=== PATIENT | female | born 1950 | race Caucasian/White ===

== ENCOUNTER → 2023-07-17 11:03 | Outpatient (REF) | payer OTHER, SELFPAY | LOC: WDC 11:03 | PROVIDERS: ATTENDING PHYSICIAN Family Medicine | DX: Z12.31 Encounter for screening mammogram for malignant neoplasm of breast (principal) | CPT/HCPCS: 77063; 77067 ==

== ENCOUNTER 2023-08-05 12:50 | Emergency (ER) | payer OTHER, SELFPAY ==
[2023-08-05 13:13] LABS: % Eosinophils 0.2 % (0-6); % Immature Granulocytes 0.2 % (0-0.5); % Monocytes 2.2 % (1.7-9.3); % Neutrophils 2.4 % (42.2-75.2); Absolute Basophils 0.1 10^3/uL (0-0.2); Absolute Eosinophils 0.4 10^3/uL (0-0.7); Absolute Immature Granulocytes 0.5 10^3/uL (0-0.05); Absolute Lymphocytes 202.6 10^3/uL (1.2-3.4); Absolute Monocytes 4.7 10^3/uL (0.1-0.6); Absolute Neutrophils 5.1 10^3/uL (1.4-6.5); Hematocrit 35.3 % (37.0-47.0); Hemoglobin 11.3 g/dL (12.0-16.0); Mean Corpuscular Hgb 28.9 pg (27.0-31.0); Mean Corpuscular Volume 90.3 fL (81.0-99.0); Mean Platelet Volume 10.5 fL (7.4-10.4); Nucleated Red Blood Cells % 0 %; Platelet Count 153 10^3/uL (130-400); Red Blood Cell Count 3.91 10^6/uL (4.20-5.40); Red Cell Dist. Width 14.9 % (11.5-14.5)
[2023-08-05 13:16] LABS: White Blood Cell Count 213.3 10^3/uL (4.8-10.8)
[2023-08-05 13:27] LABS: COVID-19 Antigen Negative (Negative)
[2023-08-05 13:31] LABS: ALT (SGPT) 19 U/L (0-35); AST (SGOT) 32 U/L (14-36); Albumin 4.3 g/dl (3.5-5.0); Alkaline Phosphatase 107 U/L (38-126); Blood Urea Nitrogen 22 mg/dl (7-17); Calcium 9.3 mg/dl (8.4-10.2); Carbon Dioxide 27 mmol/L (22-30); Chloride 101 mmol/L (98-107); Glucose 109 mg/dl (70-99); Potassium 4.2 mmol/L (3.5-5.1); Sodium 139 mmol/L (135-145); Total Bilirubin 0.6 mg/dl (0.2-1.3); Total Protein 6.6 g/dl (6.3-8.2); eGFR > 60.00
--- NOTE | 2023-08-05 13:34 | ED.GENMED ---
History of Present Illness
General
Chief Complaint: Cold/Flu/URI Symptoms
Source: patient
Exam Limitations: none
Time Seen by Provider: 08/05/23 13:23
Nursing documentation reviewed up to this point in time: agreed with
Travel History
Have you had any contact with someone who has COVID-19?: No
Do you have any symptoms of coronavirus? Fever > 100 degrees, chills, cough, shortness of breath, sore throat, loss of taste or smell, muscle aches, or headache?: No
History of Present Illness
History of Present Illness:
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
her mask, it had heavy thick dust in the air which she inhaled. Past few days has had an increasing SOB, cough with pain in lungs, deeper voice, fatigue.
She feels well otherwise, denies fever, CP.
Has chronic year-round allergic rhinitis and takes daily Loratadine.
Past History
Past History
ED Past Medical History: Cancer (CLL followed by Dr. Martins) and Other (vianney); Negative Valvular disease
ED Past Surgical History: None
Social History
Tobacco: Non-smoker
Alcohol: None
Drug: None
Living: with family
Employment: Employed
Family History
Family History: Other
Review of Systems
Review of Systems
Allergies reviewed?: Yes
All Other Systems: ROS reviewed and negative except as documented in HPI and ROS
Constitutional: Reports fatigue; Denies fever or chills
EENT: Reports sore throat (mild, voice lower than normal, chronic PND)
Respiratory: Reports cough; Denies trouble breathing (lungs hurt with deep breaths, cough)
Cardiac: Denies chest pain
ABD/GI: Denies abdominal pain, nausea or vomiting
Musculoskeletal: Reports no symptoms
Skin: Reports no symptoms
Neurological: Reports no symptoms
Phy Exam
Physical Exam
Physical Exam:
GENERAL: No acute distress. A&Ox3.
CONSTITUTIONAL: Afebrile.
EYES: clear, conjunctivae normal, allergic shiners
ENMT: moist mucus membranes, Pharynx nl, TMs normal, mild nasal stuffiness
RESPIRATORY: Regular respirations, nonlabored, lungs clear. Occasional coarse cough
CARDIOVASCULAR: Regular rate and rhythm, no murmurs, no rubs.
GI: Soft, nontender
MUSCULOSKELETAL: Moves with ease. Well perfused. No edema
SKIN: Warm, dry, pink
PSYCH: Normal mood and affect. Well kept, interactive and appropriate
NEUROLOGIC: Awake, alert and oriented. No focal neurological deficits
Course
Orders/Labs/Results
Orders:
Orders
08/05/23 12:56
Chest [CR Chest - 2 Views ] Urgent
Comment:
Reason For Exam: cough
08/05/23 13:03
CBC/With Diff [Complete Blood Count/With Diff] Urgent
CMP [Comprehensive Metabolic Panel] Urgent
COVID-19 Antigen Urgent
Source: Nasal Swab
INF RAPID [Influenza A+B Rapid Molecular] Urgent
BIRDIE Source: Nasal Swab
Specimen Description:
08/05/23 14:33
Ipratropium/Albuterol Sulfate [Duoneb] 3 ml INH R NOW STA
08/05/23 15:53
Dexamethasone [Decadron] 10 mg PO NOW STA
Abnormal Lab Results
08/05/23
13:03
WBC 213.3 H* 10^3/uL
(4.8-10.8)
RBC 3.91 L 10^6/uL
(4.20-5.40)
Hgb 11.3 L g/dL
(12.0-16.0)
Hct 35.3 L %
(37.0-47.0)
MCHC 32.0 L g/dL
(33.0-37.0)
RDW 14.9 H %
(11.5-14.5)
MPV 10.5 H fL
(7.4-10.4)
Abs Immat Gran (auto) 0.5 H 10^3/uL
(0-0.05)
Absolute Lymphs (auto) 202.6 H 10^3/uL
(1.2-3.4)
Absolute Monos (auto) 4.7 H 10^3/uL
(0.1-0.6)
Neutrophils % 2.4 L %
(42.2-75.2)
Lymphocytes % 95.0 H %
(20.5-51.1)
BUN 22 H mg/dl
(7-17)
Glucose 109 H mg/dl
(70-99)
08/05/23 13:03
08/05/23 13:03
Vital Signs
Initial and Last Documented VS:
Initial Vital Signs
Temp Pulse Resp Pulse Ox
97.5 F 84 17 98
08/05/23 12:53 08/05/23 12:53 08/05/23 12:53 08/05/23 12:53
Last Documented Vital Signs
Temp Pulse Resp BP Pulse Ox
98.5 F 91 18 107/41 98
08/05/23 16:43 08/05/23 16:43 08/05/23 16:43 08/05/23 16:43 08/05/23 16:43
MDM/Problems Addressed
Differential Diagnosis Includes:
bronchitis,
MDM/Problems Addressed:
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
her mask, it had heavy thick dust in the air which she inhaled. Past few days has had an increasing SOB, cough with pain in lungs, deeper voice, fatigue.
She feels well otherwise, denies fever, CP.
Has chronic year-round allergic rhinitis and takes daily Loratadine.
CBC: WBC 213.3 she has previous labs on her phone and her last WBC in 03/13 was 212.9 so this is consistent with her baseline
3:00 PM
Chest x-ray: NAD
Patient given a DuoNeb treatment
3:49 PM
After DuoNeb treatment feeling no better, no worse.
Pulse ox 100% RA, coughing with productive clear sputum.
Plan: Treat for irritant bronchitis, rx for Albuterol sent to her pharmacy. She takes Loratadine daily, for her PND and sinus stuffiness, rx for Flonase sent to her pharmacy
*Critical Care Note
Total Time (30-74mins, 75-104mins- exclusive of procedures): Not Applicable
ED Attending Note
-
Portions of this chart may have been created with voice recognition software.� Occasional wrong word or��sound alike� substitutions may have occurred due to the inherent limitations of voice recognition software.
Discharge Plan
Departure
Patient Disposition: Home (Routine Discharge)
Date of Disposition: 08/05/23
Time of Disposition: 15:55
Patient with high blood pressure during this ER visit?: No
Condition: Good
Discharge Problem:
Bronchitis due to chemical
Prescriptions:
New
albuterol sulfate 90 mcg/actuation HFA aerosol inhaler
2 puff inhalation QID PRN (Reason: shortness of breath or wheezing) Qty: 6.7 0RF
fluticasone propionate [Flonase Allergy Relief] 50 mcg/actuation spray,suspension
1 spray intranasal BID Qty: 16 0RF
No Action
levothyroxine 200 MCG tablet
100 mcg PO DAILY
loratadine 10 MG tablet
10 mg PO DAILY Qty: 20 0RF
multivitamin Tablet
1 tab PO DAILY
atorvastatin 40 mg Tablet
40 mg PO HS
metformin 500 mg Tablet
500 mg PO BID
omeprazole 40 mg Capsule,Delayed Release(Dr/Ec)
40 mg PO DAILY
lisinopril 2.5 mg Tablet
2.5 mg PO DAILY
calcium carbonate-vitamin D3 [Calcium 500 + D (D3)] 500 mg-3.125 mcg (125 unit) Tablet
1 tab PO QPM
albuterol sulfate 1 PUFF HFA aerosol inhaler
2 puff inhalation R Q6HPRN PRN (Reason: WHEEZING)
Referrals:
Niru Joshi MD [Family Provider] - Follow up in 5-7 days
Activity Restrictions/Additional Instructions:
As we discussed, we will treat this like irritant bronchitis.
I sent a prescription to your pharmacy for albuterol to use for shortness of breath or wheezing and also for Flonase to help with the nasal stuffiness and postnasal drip.
Continue your loratadine as prescribed
Your chest x-ray shows nothing worrisome.
Interventions
Interventions:
*Risk Screen - Suicide Last Done: 08/05/23 12:53
*General Assessment Last Done: 08/05/23 12:53
*Neglect/Abuse Screening Last Done: 08/05/23 12:53
ED- Fall Risk Assessment Last Done: 08/05/23 14:09
*ED COVID-19 Vaccine History Last Done: 08/05/23 14:09
*Nursing Disposition Last Done: 08/05/23 16:43
ED- Pulmonary Assessment Last Done: 08/05/23 14:09
Discharge Date and Time
Discharge Date/Time: 08/05/23 16:40
Print Language: IRISH
[2023-08-05 14:09] VITALS: BMI 30.5
[2023-08-05 14:14] VITALS: BP 99/77
[2023-08-05] MEDS: DUONEB 3 ML INH (14:39)
[2023-08-05] MEDS: DECADRON 10 MG PO (16:22)
--- NOTE | 2023-08-05 16:40 | EDRN ---
Reviewed discharge instructions with patient. Verbalized understanding. Ambulated with steady gait to the lobby.
[2023-08-05 16:43] VITALS: BP 107/41
== END 2023-08-05 16:40 | disposition home or self-care (01) ==
LOC: EMR 12:50
PROVIDERS: Emergency Medicine; EMERGENCY PHYSICIAN Emergency Medicine; FAMILY PHYSICIAN Family Medicine
DX: J68.0 Bronchitis and pneumonitis due to chemicals, gases, fumes and vapors (principal); C91.10 Chronic lymphocytic leukemia of B-cell type not having achieved remission; E11.9 Type 2 diabetes mellitus without complications; I10 Essential (primary) hypertension; K21.9 Gastro-esophageal reflux disease without esophagitis; Z85.850 Personal history of malignant neoplasm of thyroid; Z11.52 Encounter for screening for COVID-19
CPT/HCPCS: 99284; 94640; 71046; 80053; 85025; 87502; 87811

== ENCOUNTER → 2023-12-11 09:33 | Outpatient (REF) | payer OTHER, SELFPAY ==
[2023-12-11 10:07] LABS: Hematocrit 37.1 % (37.0-47.0); Hemoglobin 11.9 g/dL (12.0-16.0); Mean Corp Hgb Conc. 32.1 g/dL (33.0-37.0); Mean Corpuscular Hgb 28.7 pg (27.0-31.0); Mean Corpuscular Volume 89.4 fL (81.0-99.0); Mean Platelet Volume 10.7 fL (7.4-10.4); Platelet Count 148 10^3/uL (130-400); Red Blood Cell Count 4.15 10^6/uL (4.20-5.40); Red Cell Dist. Width 15.3 % (11.5-14.5); White Blood Cell Count 222.6 10^3/uL (4.8-10.8)
[2023-12-11 10:09] LABS: INR 1.02; PT 13.4 Sec (11.4-14.6)
[2023-12-11 10:40] VITALS: BP 127/64; BP_SYST 67
[2023-12-11 10:41] LABS: Glucose - Point of Care 129 mg/dl (70-99)
[2023-12-11] MEDS: ATIVAN 0.5 MG IV (11:28)
[2023-12-11] MEDS: NSS (PRESERVATIVE FREE) 0.25 ML IV (11:29)
[2023-12-11 11:30] LABS: % Eosinophils 0.2 % (0-6); % Immature Granulocytes 0.2 % (0-0.5); % Lymphocytes 95.5 % (20.5-51.1); % Monocytes 1.8 % (1.7-9.3); % Neutrophils 2.3 % (42.2-75.2); Absolute Basophils 0.1 10^3/uL (0-0.2); Absolute Eosinophils 0.5 10^3/uL (0-0.7); Absolute Immature Granulocytes 0.5 10^3/uL (0-0.05); Absolute Lymphocytes 212.6 10^3/uL (1.2-3.4); Nucleated Red Blood Cells % 0 %
[2023-12-11 12:26] VITALS: BP 115/63
== END ==
LOC: RADI 09:33
PROVIDERS: ATTENDING PHYSICIAN Internal Medicine Hematology & Oncology; FAMILY PHYSICIAN Family Medicine
DX: C91.10 Chronic lymphocytic leukemia of B-cell type not having achieved remission (principal); D68.8 Other specified coagulation defects
CPT/HCPCS: 88305; 88311; 88312; 36415; 38222; 77012; 82962; 85025; 85610; 88313

== ENCOUNTER → 2024-01-09 12:33 | Outpatient (REF) | payer OTHER, SELFPAY | LOC: RAD 12:33 | PROVIDERS: ATTENDING PHYSICIAN Internal Medicine Hematology & Oncology; FAMILY PHYSICIAN Family Medicine | DX: C91.10 Chronic lymphocytic leukemia of B-cell type not having achieved remission (principal); D80.1 Nonfamilial hypogammaglobulinemia; D51.3 Other dietary vitamin B12 deficiency anemia; E55.9 Vitamin D deficiency, unspecified | CPT/HCPCS: 70491; 71260; 74177; Q9967 ==

== ENCOUNTER → 2024-02-20 06:30 | Day surgery (SDC) | payer OTHER, SELFPAY ==
[2024-02-20 07:52] LABS: Glucose - Point of Care 126 mg/dl (70-99)
== END ==
LOC: GI 06:30
PROVIDERS: ATTENDING PHYSICIAN Internal Medicine Gastroenterology
DX: R12 Heartburn (principal); K44.9 Diaphragmatic hernia without obstruction or gangrene; K31.7 Polyp of stomach and duodenum; K22.89 Other specified disease of esophagus; K22.70 Barrett's esophagus without dysplasia
CPT/HCPCS: 43239; 88305; 82962

== ENCOUNTER 2024-05-21 17:49 | Emergency (ER) | payer OTHER, SELFPAY ==
[2024-05-21 18:01] VITALS: BP 126/72
--- NOTE | 2024-05-21 18:41 | ED.GENMED ---
History of Present Illness
General
Chief Complaint: Musculo-Skeletal Complaint
Source: patient
Exam Limitations: none
Time Seen by Provider: 05/21/24 18:37
History of Present Illness
History of Present Illness:
73yoF presenting for evaluation of right lower leg pain. Patient was walking her daughter's dog a few hours ago when the dog pulled her causing her to fall. Patient fell flat and injured her right lower leg. No head strike or loss of
consciousness. Patient was able to walk home after the fall. She sat down in her chair her a while and upon standing, she noticed a pinching feeling in her right lower leg. She decided to come to the ED to make sure she did not have a fracture.
Patient is presenting with some bruising and swelling of her right lower leg. No other complaints at this time.
Past History
Past History
ED Past Medical History: Cancer (CLL followed by Dr. Martins) and Other (vianney); Negative Valvular disease
ED Past Surgical History: None
Social History
Tobacco: Non-smoker
Alcohol: None
Drug: None
Living: with family
Employment: Employed
Family History
Family History: Other
Phy Exam
General Physical Exam
General Presentation: well appearing and no apparent distress
General age: appears stated age
General Skin: warm and dry
General Habitus: normal
General Mental: alert
ENT Exam
ENT Exam: normocephalic
Neurological Exam
Neurological Exam: alert
Terrie Coma Scale
Eye Opening: Spontaneous
Verbal Response: Oriented
Motor Response: Obeys Commands
GCS Total Score: 15
Musculoskeletal Exam
Musculoskeletal Exam: other (There is swelling and ecchymosis noted to the R anterior lower leg with minor abrasions. ROM of ankle and knee intact. 2+ DP pulse and sensation intact. )
Skin Exam
Skin Exam: warm/dry
Psychiatric Exam
Psychiatric Exam: normal mood/affect
Course
Orders/Labs/Results
Orders:
Orders
05/21/24 18:05
CR Leg Tibia/fibula Right 2 Vw Urgent
Comment:
Reason For Exam: fall, pain
Vital Signs
Initial and Last Documented VS:
Initial Vital Signs
Temp Pulse Resp BP Pulse Ox
99.0 F 102 18 126/72 97
05/21/24 18:01 05/21/24 18:01 05/21/24 18:01 05/21/24 18:01 05/21/24 18:01
Last Documented Vital Signs
Temp Pulse Resp BP Pulse Ox
99.0 F 102 18 126/72 97
05/21/24 18:01 05/21/24 18:01 05/21/24 18:01 05/21/24 18:01 05/21/24 18:01
MDM/Problems Addressed
Differential Diagnosis Includes:
73yoF here with R lower leg pain after a mechanical fall. Ecchymosis and swelling noted to the anterior saenz. No tenderness in knee or ankle joint. RLE is neurovascularly intact. Differential diagnosis: contusion vs. fracture
X-rays obtained which are negative for fracture per my interpretation. Supportive care discussed including RICE and PRN Tylenol. Advised f/u with orthopedics if symptoms persist. She was discharged in stable condition.
*Critical Care Note
Total Time (30-74mins, 75-104mins- exclusive of procedures): Not Applicable
ED Attending Note
-
Portions of this chart may have been created with voice recognition software.� Occasional wrong word or��sound alike� substitutions may have occurred due to the inherent limitations of voice recognition software.
Discharge Plan
Departure
Patient Disposition: Home (Routine Discharge)
Date of Disposition: 05/21/24
Time of Disposition: 18:42
Patient with high blood pressure during this ER visit?: No
Discharge Problem:
Contusion of lower leg, right
Instructions: Contusion (DC)
Prescriptions:
No Action
levothyroxine 200 MCG tablet
100 mcg PO DAILY
loratadine 10 MG tablet
10 mg PO DAILY Qty: 20 0RF
multivitamin Tablet
1 tab PO DAILY
atorvastatin 40 mg Tablet
40 mg PO HS
metformin 500 mg Tablet
500 mg PO BID
omeprazole 40 mg Capsule,Delayed Release(Dr/Ec)
40 mg PO DAILY
lisinopril 2.5 mg Tablet
2.5 mg PO DAILY
calcium carbonate-vitamin D3 [Calcium 500 + D (D3)] 500 mg-3.125 mcg (125 unit) Tablet
1 tab PO QPM
albuterol sulfate 1 PUFF HFA aerosol inhaler
2 puff inhalation R Q6HPRN PRN (Reason: WHEEZING)
albuterol sulfate 90 mcg/actuation HFA aerosol inhaler
2 puff inhalation QID PRN (Reason: shortness of breath or wheezing) Qty: 6.7 0RF
fluticasone propionate [Flonase Allergy Relief] 50 mcg/actuation spray,suspension
1 spray intranasal BID Qty: 16 0RF
Referrals:
Niru Garcia I., DO [Active] -
Activity Restrictions/Additional Instructions:
Apply ice to affected area and elevate your leg to help with swelling. Take Tylenol as needed for pain.
Please follow-up with orthopedics if symptoms persist.
Interventions
Interventions:
*Risk Screen - Suicide Last Done: 05/21/24 18:01
*General Assessment Last Done: 05/21/24 18:01
*Neglect/Abuse Screening Last Done: 05/21/24 18:01
*ED COVID-19 Vaccine History Last Done: 05/21/24 18:01
*Nursing Disposition Last Done: 05/21/24 19:06
Discharge Date and Time
Discharge Date/Time: 05/21/24 19:07
Print Language: GERMAN
== END 2024-05-21 19:07 | disposition home or self-care (01) ==
LOC: EMR 17:49
PROVIDERS: EMERGENCY PHYSICIAN Emergency Medicine; FAMILY PHYSICIAN Family Medicine
DX: S80.11XA Contusion of right lower leg, initial encounter (principal); W19.XXXA Unspecified fall, initial encounter; Y93.01 Activity, walking, marching and hiking; C91.10 Chronic lymphocytic leukemia of B-cell type not having achieved remission; G47.33 Obstructive sleep apnea (adult) (pediatric)
CPT/HCPCS: 99283; 73590

== ENCOUNTER 2024-06-01 13:31 | Emergency (ER) | payer OTHER, SELFPAY ==
[2024-06-01 13:35] VITALS: BP 145/77
[2024-06-01 14:05] LABS: Hematocrit 34.9 % (37.0-47.0); Hemoglobin 11.3 g/dL (12.0-16.0); Mean Corp Hgb Conc. 32.4 g/dL (33.0-37.0); Mean Corpuscular Hgb 28.7 pg (27.0-31.0); Mean Corpuscular Volume 88.6 fL (81.0-99.0); Mean Platelet Volume 11.2 fL (7.4-10.4); Platelet Count 189 10^3/uL (130-400); Red Blood Cell Count 3.94 10^6/uL (4.20-5.40); Red Cell Dist. Width 15.5 % (11.5-14.5)
[2024-06-01 14:07] LABS: White Blood Cell Count 165.4 10^3/uL (4.8-10.8)
[2024-06-01 14:18] LABS: ALT (SGPT) 23 U/L (0-35); AST (SGOT) 28 U/L (14-36); Alkaline Phosphatase 95 U/L (38-126); Blood Urea Nitrogen 20 mg/dl (7-17); Calcium 9.1 mg/dl (8.4-10.2); Carbon Dioxide 26 mmol/L (22-30); Chloride 104 mmol/L (98-107); Glucose 109 mg/dl (70-99); Potassium 4.6 mmol/L (3.5-5.1); Sodium 137 mmol/L (135-145); Total Bilirubin 0.6 mg/dl (0.2-1.3); Total Protein 6.1 g/dl (6.3-8.2); eGFR 59.49
[2024-06-01 14:46] LABS: % Basophils 0.1 % (0-2); % Eosinophils 0.3 % (0-6); % Immature Granulocytes 0.3 % (0-0.5); % Lymphocytes 93.5 % (20.5-51.1); % Monocytes 1.5 % (1.7-9.3); % Neutrophils 4.3 % (42.2-75.2); Absolute Basophils 0.1 10^3/uL (0-0.2); Absolute Eosinophils 0.5 10^3/uL (0-0.7); Absolute Immature Granulocytes 0.5 10^3/uL (0-0.05); Absolute Lymphocytes 154.6 10^3/uL (1.2-3.4); Absolute Monocytes 2.6 10^3/uL (0.1-0.6); Absolute Neutrophils 7.2 10^3/uL (1.4-6.5); Nucleated Red Blood Cells % 0 %
[2024-06-01 16:06] VITALS: BP 124/60
--- NOTE | 2024-06-01 16:15 | ED.GENMED ---
History of Present Illness
General
Chief Complaint: Skin Problem
Time Seen by Provider: 06/01/24 16:14
History of Present Illness
History of Present Illness:
TIME OF INITIAL ENCOUNTER: 4:15 PM
HPI: Patient presents for 2 reasons: #1 constipation ongoing since she started cefuroxime. She was placed on cefuroxime for right lower extremity wound out of precaution. She has no significant abdominal pain. She has not been vomiting. #2
worsening right lower extremity wound despite being on cefuroxime. She states that she was
EXAM:
GENERAL: Well appearing in no distress
HEENT: Moist oral mucosa
CARDIOVASCULAR: No murmurs, normal heart rate, regular rhythm, No chest wall tenderness
PULMONARY: No respiratory distress, breath sounds are clear and equal
ABDOMEN: Soft with no peritoneal signs, no tenderness, on digital rectal examination, there are small formed pieces of stool at the tip of my that I am unable to manually remove
NEUROLOGIC: Excellent strength all extremities, no coordination deficits
PSYCHIATRIC: Appropriate mental status, normal insight and judgement
EXTREMITIES: There is a moderate-sized hematoma over the right saenz with minimal warmth and erythema, relatively low suspicion for cellulitis, no definite abscess
SKIN: No rash, no lesions
NUMBER AND COMPLEXITY OF PROBLEMS ADDRESSED AT THE ENCOUNTER
� Chronic conditions affecting care: CLL, high blood pressure, has had Dupuytren's contracture, thyroid disease, diabetes
� Acute Exacerbation and/or Progression of Chronic Illness: This is an acute problem
� Differential Diagnosis includes: Adverse medication reaction, constipation, rectal fecal impaction, no suggestion of bowel obstruction
AMOUNT AND/OR COMPLEXITY OF DATA TO BE REVIEWED AND ANALYZED
� I performed an independent evaluation of and my interpretation is:
EKG:
CT:
X-rays:
Laboratory Studies: White count 165, hemoglobin 11.3, normal renal function
Other:
� Review of other/old records: I reviewed old records, white count�[place] was 223
� Clinical information was obtained by an independent historian: None needed
� Prescriptions/Medications Considered but not given:
� Further testing considered but not performed:
RISK OF COMPLICATIONS AND/OR MORBIDITY OR MORTALITY OF PATIENT MANAGEMENT
� Social determinants of health affecting care: Lives at home
� Discussion with other providers:
� Escalation of care including admission/observation vs risk of discharge considered: The patient does have some stool in the rectum but I was unable to manually remove, I have ordered a soapsuds enema. Will also switch from
cefuroxime to doxycycline.
ANY OTHER UPDATES:
6 PM: On reassessment, patient did have a small bowel movement after enema will also switch from cefuroxime to doxycycline.
Past History
Past History
ED Past Medical History: Cancer (CLL followed by Dr. Martins) and Other (vianney); Negative Valvular disease
ED Past Surgical History: None
Social History
Tobacco: Non-smoker
Alcohol: None
Drug: None
Living: with family
Employment: Employed
Family History
Family History: Other
Phy Exam
Physical Exam
Physical Exam:
See HPI
Course
Orders/Labs/Results
Orders:
Orders
06/01/24 13:46
Complete Blood Count/With Diff Urgent
Comprehensive Metabolic Panel Urgent
06/01/24 16:24
Enema- Treatment ONCE
Type: Soap Suds
Abnormal Lab Results
06/01/24
13:46
WBC 165.4 H* 10^3/uL
(4.8-10.8)
RBC 3.94 L 10^6/uL
(4.20-5.40)
Hgb 11.3 L g/dL
(12.0-16.0)
Hct 34.9 L %
(37.0-47.0)
MCHC 32.4 L g/dL
(33.0-37.0)
RDW 15.5 H %
(11.5-14.5)
MPV 11.2 H fL
(7.4-10.4)
Abs Immat Gran (auto) 0.5 H 10^3/uL
(0-0.05)
Absolute Neuts (auto) 7.2 H 10^3/uL
(1.4-6.5)
Absolute Lymphs (auto) 154.6 H 10^3/uL
(1.2-3.4)
Absolute Monos (auto) 2.6 H 10^3/uL
(0.1-0.6)
Neutrophils % 4.3 L %
(42.2-75.2)
Lymphocytes % 93.5 H %
(20.5-51.1)
Monocytes % 1.5 L %
(1.7-9.3)
BUN 20 H mg/dl
(7-17)
Glucose 109 H mg/dl
(70-99)
Total Protein 6.1 L g/dl
(6.3-8.2)
06/01/24 13:46
06/01/24 13:46
Vital Signs
Initial and Last Documented VS:
Initial Vital Signs
Temp Pulse Resp BP Pulse Ox
36.7 C 76 18 145/77 98
06/01/24 13:35 06/01/24 13:35 06/01/24 13:35 06/01/24 13:35 06/01/24 13:35
Last Documented Vital Signs
Temp Pulse Resp BP Pulse Ox
36.7 C 80 18 124/60 97
06/01/24 13:35 06/01/24 16:06 06/01/24 16:06 06/01/24 16:06 06/01/24 16:06
*Critical Care Note
Total Time (30-74mins, 75-104mins- exclusive of procedures): Not Applicable
ED Attending Note
-
Portions of this chart may have been created with voice recognition software.� Occasional wrong word or��sound alike� substitutions may have occurred due to the inherent limitations of voice recognition software.
Discharge Plan
Departure
Patient Disposition: Home (Routine Discharge)
Date of Disposition: 06/01/24
Time of Disposition: 18:03
Patient with high blood pressure during this ER visit?: Yes
Discharge Problem:
Constipation
Instructions: Constipation in adults, BLOOD PRESSURE
Prescriptions:
New
doxycycline monohydrate 100 mg tablet
100 mg PO BID Qty: 14 0RF
No Action
levothyroxine 200 MCG tablet
100 mcg PO DAILY
loratadine 10 MG tablet
10 mg PO DAILY Qty: 20 0RF
multivitamin Tablet
1 tab PO DAILY
atorvastatin 40 mg Tablet
40 mg PO HS
metformin 500 mg Tablet
500 mg PO BID
omeprazole 40 mg Capsule,Delayed Release(Dr/Ec)
40 mg PO DAILY
lisinopril 2.5 mg Tablet
2.5 mg PO DAILY
calcium carbonate-vitamin D3 [Calcium 500 + D (D3)] 500 mg-3.125 mcg (125 unit) Tablet
1 tab PO QPM
albuterol sulfate 1 PUFF HFA aerosol inhaler
2 puff inhalation R Q6HPRN PRN (Reason: WHEEZING)
albuterol sulfate 90 mcg/actuation HFA aerosol inhaler
2 puff inhalation QID PRN (Reason: shortness of breath or wheezing) Qty: 6.7 0RF
fluticasone propionate [Flonase Allergy Relief] 50 mcg/actuation spray,suspension
1 spray intranasal BID Qty: 16 0RF
Referrals:
Niru Joshi MD [Family Provider] -
Activity Restrictions/Additional Instructions:
I have switched you from cefuroxime to doxycycline. I also recommend he take MiraLAX to help treat constipation�this is [id number]. On other than the high white blood cell count related to the CLL, basic blood work was unremarkable. Return
here if worse or other concerns.
Interventions
Interventions:
*Risk Screen - Suicide Last Done: 06/01/24 13:35
*General Assessment Last Done: 06/01/24 13:35
*Neglect/Abuse Screening Last Done: 06/01/24 13:35
*ED COVID-19 Vaccine History Last Done: 06/01/24 13:35
Discharge Date and Time
Print Language: WOLOF
[2024-06-01 17:11] VITALS: BMI 29.8
[2024-06-01 18:10] VITALS: BP 133/73
== END 2024-06-01 18:25 | disposition home or self-care (01) ==
LOC: EMR 13:31
PROVIDERS: Emergency Medicine; EMERGENCY PHYSICIAN Emergency Medicine; FAMILY PHYSICIAN Family Medicine
DX: K59.00 Constipation, unspecified (principal); S80.11XA Contusion of right lower leg, initial encounter; X58.XXXA Exposure to other specified factors, initial encounter; C91.10 Chronic lymphocytic leukemia of B-cell type not having achieved remission; G47.33 Obstructive sleep apnea (adult) (pediatric)
CPT/HCPCS: 99283; 80053; 85025

== ENCOUNTER → 2024-07-22 13:56 | Outpatient (REF) | payer OTHER, SELFPAY | LOC: WDC 13:56 | PROVIDERS: ATTENDING PHYSICIAN Family Medicine | DX: Z12.31 Encounter for screening mammogram for malignant neoplasm of breast (principal) | CPT/HCPCS: 77063; 77067 ==